=== PATIENT | male | born 1975 | race American Indian/Alaskan Native ===

== ENCOUNTER 2017-10-20 13:30 | Inpatient (IN) ==
[2017-10-20] MEDS ORDERED: IOPAMIDOL 100 ML BOTTLE IV ONE (13:31)
[2017-10-20] MEDS ORDERED: KETOROLAC 60 MG/2 ML VIAL IM ONE (13:40)
--- NOTE | 2017-10-20 15:40 | Emergency Department Note ---
Abdominal Pain HPI <Vargas Vega Theo - Last Filed: 10/20/17 17:10> - General Source: patient Mode of arrival: ambulatory Limitations: no limitations - History of Present Illness MD Complaint: abdominal pain Onset (ago): hour(s) Consistency: constant Location: RLQ, suprapubic Severity: moderate Severity scale (1-10): 8 Quality: cramping, stabbing, aching, sharp (initially when it happened) Radiation: other (right groin) Improves with: rest Worsens with: movement, other (palpation) Context: other (lifted a couch) Associated symptoms: Reports: denies other symptoms <Jefferson Martinez - Last Filed: 10/20/17 17:55> - General Chief Complaint: Abdominal Pain Stated Complaint: Abd pain Time Seen by Provider: 10/20/17 13:36 - History of Present Illness HPI Narrative: Patient presents today with right lower abdominal pain diffuse, does radiate into the suprapubic region and right groin, reports that he was lifting a couch this morning reached down and grabbed the couch lifted upward and felt a pop and immediate pain, continue to move the couch when he was done realized the pain was not subsiding, within a couple hours pain worsened, then presented at the ER, denies pain on the left, denies previous pain in this area, denies nausea vomiting or other symptoms at this time. (Jefferson Martinez) - Related Data Home Medications Medication Instructions Recorded Confirmed No Known Home Meds [No Known Home 10/20/17 10/20/17 Meds] Allergies Allergy/AdvReac Type Severity Reaction Status Date / Time No Known Drug Allergies Allergy Verified 10/20/17 13:32 Review of Systems All systems ED: reviewed and negative except as stated. <Jefferson Martinez - Last Filed: 10/20/17 17:55> Abdominal Pain PMH - Past Medical History Medical history: Reports: no medical history - Social History Smoking status: Never smoker <Jefferson Martinez - Last Filed: 10/20/17 17:55> Physical Exam Limitations: no limitations General appearance: anxious (due to pain/ discomfort) Respiratory: Present: normal lung sounds bilaterally Cardiovascular: Present: regular rate Abdominal: Present: soft, tenderness (right umbilicus), guarding, normal bowel sounds, hernia (umbilical 2x2, positioned mid umblicus to right LLQ). Absent: rebound, rigidity, organomegaly Back: Present: normal inspection, full ROM Neurological: Present: alert, oriented X3 Psychiatric: Present: normal affect, normal mood Skin: Present: warm, dry. Absent: rash <Jefferson Martinez - Last Filed: 10/20/17 17:55> Vital Signs Temperature 98.1 F 10/20/17 13:31 Pulse Rate 60 10/20/17 13:31 Respiratory Rate 16 10/20/17 13:31 Blood Pressure 145/95 10/20/17 13:31 Pulse Oximetry (%) 96 10/20/17 13:31 Temperature 98.1 F 10/20/17 13:31 Pulse Rate 70 10/20/17 17:20 Respiratory Rate 22 10/20/17 17:20 Blood Pressure 141/85 10/20/17 17:20 Pulse Oximetry (%) 95 10/20/17 17:20 Abdominal Pain - Lab Data Result diagrams: 10/20/17 14:06 <Vargas Vega - Last Filed: 10/20/17 17:10> - Lab Data Lab results reviewed: Yes I reviewed the patient's lab results. Result diagrams: 10/20/17 14:06 - Radiology Data Radiology results reviewed: Yes I reviewed the patient's radiology results. - EKG Data EKG attestation: Yes I reviewed and interpreted this EKG. EKG shows normal: ST-T waves <Jefferson Martinez - Last Filed: 10/20/17 17:55> - Lab Data Lab Results 10/20/17 10/20/17 10/20/17 Range/Units 14:06 14:06 14:06 WBC 8.0 (4.5-11.0) K/mcL RBC 5.03 (4.50-5.90) M/mcL Hgb 15.2 (13.5-16.5) g/dL Hct 46.0 (41.0-55.0) % POC Hct 48.0 (41.0-55.0) % MCV 91.5 (80.0-100.0) fL MCH 30.2 (26.0-34.0) pg MCHC 33.0 (31.0-36.0) g/dL RDW 13.2 (11.5-14.5) % Plt Count 287 (140-440) K/mcL MPV 7.9 (7.4-10.4) fL Total Counted 100 Seg Neutrophils % 74 (38-78) % Band Neutrophils % 1 (0-10) % Lymphocytes % 11 L (15-49) % Monocytes % (Manual) 8 (1-12) % Eosinophils % (Manual) 3 (0-7) % Basophils % (Manual) 3 H (0-2) % Platelet Estimate Normal (NORMAL) RBC Morphology Abnorm A (NORMAL) Polychromasia Rare A (NONE SEEN) POC PT (11.9-14.5) sec POC INR (0.9-1.2) POC Sodium 136 (133-145) mmol/L POC Potassium 3.3 (3.3-5.1) mmol/L POC Chloride 95 L (96-108) mmol/L POC Total CO2 26 (22-30) mmol/L POC BUN < 3 L (6-20) mg/dl POC Creatinine 0.6 L (0.7-1.2) mg/dl POC Glucose 114 H (70-105) mg/dL POC WB Ioniz Calcium 1.00 L (1.16-1.32) mmol/L Total Creatine Kinase 58 (24-195) IU/L CK-MB (CK-2) 4.5 (0-4.9) ng/ml Myoglobin < 25 L (28-72) ng/ml Troponin T (0-0.03) ng/ml Urine Color Urine Appearance Urine pH (5.0-9.0) Ur Specific [place] (1.000-1.035) Urine Protein (NEG) mg/dL Urine Glucose (UA) (NEG) mg/dL Urine Ketones (NEG) mg/dL Urine Occult Blood (<0.03) mg/dL Urine Nitrate (NEG) Urine Bilirubin (NEG) mg/dL Urine Urobilinogen (NEG) mg/dL Ur Leukocyte Esterase (NEG) /uL Ur Culture Indicated? 10/20/17 10/20/17 10/20/17 Range/Units 14:06 16:45 17:10 WBC (4.5-11.0) K/mcL RBC (4.50-5.90) M/mcL Hgb (13.5-16.5) g/dL Hct (41.0-55.0) % POC Hct (41.0-55.0) % MCV (80.0-100.0) fL MCH (26.0-34.0) pg MCHC (31.0-36.0) g/dL RDW (11.5-14.5) % Plt Count (140-440) K/mcL MPV (7.4-10.4) fL Total Counted Seg Neutrophils % (38-78) % Band Neutrophils % (0-10) % Lymphocytes % (15-49) % Monocytes % (Manual) (1-12) % Eosinophils % (Manual) (0-7) % Basophils % (Manual) (0-2) % Platelet Estimate (NORMAL) RBC Morphology (NORMAL) Polychromasia (NONE SEEN) POC PT 12.4 (11.9-14.5) sec POC INR 1.0 (0.9-1.2) POC Sodium (133-145) mmol/L POC Potassium (3.3-5.1) mmol/L POC Chloride (96-108) mmol/L POC Total CO2 (22-30) mmol/L POC BUN (6-20) mg/dl POC Creatinine (0.7-1.2) mg/dl POC Glucose (70-105) mg/dL POC WB Ioniz Calcium (1.16-1.32) mmol/L Total Creatine Kinase (24-195) IU/L CK-MB (CK-2) (0-4.9) ng/ml Myoglobin (28-72) ng/ml Troponin T < 0.01 (0-0.03) ng/ml Urine Color Yellow Urine Appearance Clear Urine pH 6.0 (5.0-9.0) Ur Specific [place] 1.047 H (1.000-1.035) Urine Protein Neg (NEG) mg/dL Urine Glucose (UA) Negative (NEG) mg/dL Urine Ketones Neg (NEG) mg/dL Urine Occult Blood Neg (<0.03) mg/dL Urine Nitrate Neg (NEG) Urine Bilirubin Neg (NEG) mg/dL Urine Urobilinogen Neg (NEG) mg/dL Ur Leukocyte Esterase Neg (NEG) /uL Ur Culture Indicated? No Disposition <Vargas Vega - Last Filed: 10/20/17 17:10> Pt seen by CHILDR[employer]'S [employer] SUPERVISOR/PA only: No (w/ Dr. Vega) <Jefferson Martinez Filed: 10/20/17 17:55> Clinical Impression: Periumbilical abdominal pain, Periumbilical hernia Summary: Discussed the results with the patient and Dr. Vega, Per the CT patient has a 6 cm periumbilical hernia with incarcerated segment of small bowel, Dr. Molina was called, patient was discussed, he asked me to start admittance process, order a chest x-ray and EKG. Dr. Vega looked over the EKG and ordered additional lab work Patient turned over to Dr. Vega, Dr. Vega completed the admission process ( Jefferson Martinez) Disposition: Home, Self-Care Condition: Fair
--- NOTE | 2017-10-20 15:50 | Cat Scan Report ---
CLINICAL INFORMATION: Severe periumbilical pain following lifting injury COMPARISON: Chest CT from 07/25/2017.. TECHNIQUE: Following enteric contrast, 80 cc of Isovue-300 were injected intravenously, and 60 seconds later, 0.625 mm helical slices were obtained from the mid heart through the subtrochanteric regions. Following reconstruction, 2.5 mm sagittal, coronal and axial reformatted images were processed and reviewed at bone, lung and soft tissue windows. Five minutes later, 0.625 mm helical slices were obtained from the mid heart through the kidneys and viewed at soft tissue windows.The exam was performed using radiation dose optimization techniques including, but not limited to, automated exposure control, adjustment of the mA and/or kV according to patient size and use of iterative reconstruction technique. FINDINGS: Moderate elevation of the right diaphragm is again noted. There is moderate compressive atelectasis in the overlying right middle and lower lobes which is unchanged. Right lung bases are normal no effusion. Visualized heart is normal Images should the abdomen show mild fatty change within the liver but no focal lesion. There is a 17 mm nodular density adjacent the gallbladder fundus which is unchanged from the chest CT three months ago. It is likely chronic secretions within a phrygian cap in the gallbladder. Gallbladder is otherwise normal. Common bile is normal caliber. Both kidneys, adrenal glands, spleen, pancreas and aorta including aortic branches are normal in size configuration and attenuation without focal lesion. Images of pelvis show prostate seminal vesicles and urinary bladder to be normal. A moderate sized (6 cm) periumbilical hernia containing a short segment of incarcerated. Small bowel is noted. A small amount of edema in the hernia sac. The small bowel, proximal to the hernia, is moderately dilated and the distal small bowel is decompressed. Findings suggestive of partial small bowel obstruction. There is no free air, free fluid and no adenopathy. Bone windows show no osseous abnormality IMPRESSION: 1. Moderate sized (6 cm) periumbilical hernia containing incarcerated segment of small bowel. There is resultant partial small bowel obstruction. 2. 16 mm well-circumscribed ovoid density adjacent to the gallbladder fundus is unchanged from a chest CT three months prior. This is likely proteinaceous secretions within a phrygian cap. 3. Moderate chronic elevation of the right diaphragm with compressive atelectasis of the overlying right middle and lower is stable. Diaphragm paresis or paralysis is suspected Interpreted and Authenticated by: Gera Duncan 10/20/17
[2017-10-20 16:15] LABS: Mean Cell Volume 91.5 fL (80.0-100.0); Mean Corpuscular Hemoglobin 30.2 pg (26.0-34.0); Platelet Count 287 K/mcL (140-440); RBC 5.03 M/mcL (4.50-5.90); Red Cell Distribution Width 13.2 % (11.5-14.5)
[2017-10-20 16:54] LABS: Band Neutrophils % 1 % (0-10); Basophils % (Manual) 3 % (0-2); Eosinophils % (Manual) 3 % (0-7); Lymphocytes % 11 % (15-49); Monocytes % (Manual) 8 % (1-12); Platelet Estimate NORMAL (NORMAL); RBC Morphology ABNORM (NORMAL); Segmented Neutrophils % 74 % (38-78)
[2017-10-20 16:55] LABS: Creatine Kinase MB 4.5 ng/ml (0-4.9); Myoglobin < 25 ng/ml (28-72)
[2017-10-20 16:56] LABS: Creatine Kinase 58 IU/L (24-195)
--- NOTE | 2017-10-20 17:05 | XRay Report ---
CLINICAL INFORMATION: Shortness of breath COMPARISON: 07/25/2017 chest x-ray FINDINGS: Heart size, mediastinum and pulmonary vessels are normal. Moderate elevation right diaphragm seen - as before. Subsegmental atelectasis in the right middle and lower lobes. No effusions. IMPRESSION: Moderate chronic elevation right diaphragm with mild compressive atelectasis in the overlying right middle and lower lobes. No change radiographically Interpreted and Authenticated by: Gera Duncan 10/20/17
--- NOTE | 2017-10-20 17:13 | Emergency Department Note ---
ED Note Addendum Note Addendum: pt examined and agree pt has an incarcerated umbilical hernia. Pre op EKG shows t wave inversion anterior lead and troponin were neg. Advised Dr oMlina and he requested a hospitalist consult to clear patient for surgery
[2017-10-20] MEDS ORDERED: 0.9 % SODIUM CHLORIDE 1,000 ML IV SCH (17:15)
[2017-10-20 17:44] LABS: Appearance,Urine CLEAR; Bilirubin,Urine NEG (NEG); Color,Urine YELLOW; Glucose,Urine (UA) NEGATIVE (NEG); Leukocyte Esterase,Urine NEG /uL (NEG); Nitrate,Urine NEG (NEG); Protein,Urine NEG (NEG); Specific Gravity,Urine 1.047 (1.000-1.035); Urine Blood NEG mg/dL (<0.03); Urobilinogen,Urine NEG (NEG)
[2017-10-20 18:34] LABS: Blood Urea Nitrogen 4 mg/dl (6-20); Magnesium 1.7 mg/dL (1.6-2.5)
--- NOTE | 2017-10-20 19:08 | Internal Med History&Physical ---
Medical - H&P: HPI Patient information: Note initiated : 10/20/17 at 7:03 pm Service Date, if different from initiated Date: [] Patient: Edil Nina a 42 y/o M admitted on 10/20/17 for Abd Pain. Chief Complaint: [] History of present illness: Mr. Nina is a 42 year old Male with no PMH presents to the ER today with sudden onset abdominal pain. The patient was moving a couch, when he heard a pop and noticed some swelling and pain in the betsy umbilical region. The patient has had moderate to severe abdominal pain since then, this is constant, non radiating, worse with palpatino and movement, better with rest and pain meds, Some nausea but no other complaints. The patient in the ER was seen and had a CT Abdomen done which showed a incarcerated small bowel with some obstruction. Dr Molina is planning to take the patient for surgery. EKG done showed new onset T wave inversions particularly in the Ant leads v1-v4 , which is new compared to patients previous EKG done in 07/14. Medicine was therefore consulted for pre op evaluation and management of new T wave changes. The patient is a healthy 42 yr male, has no past medical history, denies any h/ o DM, HTN, HLD, CAD, CHF, CKD or TIA. 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 He had a CT Angio done for shortness of breath in june which showed neg pe, elevated right jose a diaphragm and clear coronaries in proximal and mid coronaries. The patient has neg troponin today in the ER, neg myoglobin and neg CKMB. He has no cardiac complaints or concerns. he has no family history of cardiac disase, he had h/o smoking but quit 10 yrs ago, 3-4 cigs for 3-5 yrs., he does chew tobacco. All systems: reviewed and no additional remarkable complaints except as stated ( neg excp[et as per HPI) Medical - H&P: PMH Medical history: obesity Surgical history: none Family history: reviewed and not pertinent Pertinent family history: no cad, chf or tia, cva in family Social history: ex smoker chews tobacco drinks etoh 2 drinsk a day no drugs works as construction accountant Medical - H&P: Meds Home Medications Medication Instructions Recorded Confirmed Type No Known Home Meds [No Known Home 10/20/17 10/20/17 History Meds] Allergies Allergy/AdvReac Type Severity Reaction Status Date / Time No Known Drug Allergies Allergy Verified 10/20/17 13:32 Medical - H&P: Exam - Constitutional Vitals: Temp Pulse Resp BP Pulse Ox 98.4 F 71 18 141/93 95 10/20/17 17:40 10/20/17 17:40 10/20/17 17:40 10/20/17 17:40 10/20/17 17:40 Exam: GENERAL: The patient is a well-developed, well-nourished in no apparent distress. Is alert and oriented x3. VITAL SIGNS: Reviewed and as noted elsewhere. HEENT: Head is normocephalic and atraumatic. Extraocular muscles are intact. Pupils are equal, round, and reactive to light. Nares appeared normal. Mouth appears any without lesions. Mucous membranes are moist. NECK: Normal to inspection, Supple, No lymphadenopathy or thyromegaly. LUNGS: Air entry equal on both sides, no wheezing, crackles or rhonchi noted. No accessory muscles of respiration HEART: Regular rate and rhythm normal, S1 and S2 heard, no Gallop, S3 or Rub Noted, No Gross murmur heard. ABDOMEN: Soft, tender in periumibical reigion, hypoactive bowel sounds, no organomegaly EXTREMITIES: No cyanosis, clubbing, rash, lesions or edema. NEUROLOGIC: Cranial nerves II through XII are grossly intact. Motor and Sensory System Grossly Intact PSYCHIATRIC: Normal affect, Normal Mood. Appropriate Behavior. SKIN: No ulceration or wounds noted, No jaundice, No rash noted. Medical - H&P: Reslt - Labs CBC & Chem 7: 10/20/17 14:06 10/20/17 14:06 Labs: Short CBC 10/20/17 Range/Units 14:06 WBC 8.0 (4.5-11.0) K/mcL Hgb 15.2 (13.5-16.5) g/dL Hct 46.0 (41.0-55.0) % Plt Count 287 (140-440) K/mcL BMP 10/20/17 14:06 Sodium 137 Potassium 3.6 Chloride 95 L Carbon Dioxide 21 L BUN 4 L Creatinine 0.6 L Glucose 111 H Calcium 8.3 L Cardiac Enzymes 10/20/17 10/20/17 Range/Units 14:06 14:06 Total Creatine Kinase 58 (24-195) IU/L CK-MB (CK-2) 4.5 (0-4.9) ng/ml Troponin T < 0.01 (0-0.03) ng/ml Urine 10/20/17 Range/Units 17:10 Urine Color Yellow Urine Appearance Clear Urine pH 6.0 (5.0-9.0) Ur Specific [place] 1.047 H (1.000-1.035) Urine Protein Neg (NEG) mg/dL Urine Glucose (UA) Negative (NEG) mg/dL Medical - H&P: A/P - Narrative A/P Narrative: A/P Pre op assessment: Patient has low risk factors for betsy operative mortality, RCRI is 0, and he has limitless ET, Although the T wave inversions are present which are new, these can also be seen in patients with electrolyte abnormalities like hypokalemia as well as acute abdominal process. I dont feel that the t wave changes are cardiac in nature. I reviewed the Case with Dr Laird, education associate dough molder hand who also agreed with same. from a medicine stand point patient is at low cardiac risk for a intermediate risk procedure, no further interventions would be warranted from cardiac stand point. Given his mildly elevated glucose / overweight status, he may benefit from outpatient evaluation for long distance operator risk reduction. Smoking cessation will help. hypokalemia: replace K to keep Mg > 2, and K . 4 Acute incarcerated hernia,: Management as per surgery, Dr Molina plans to take him to the OR tomorrow Medical - H&P: Qual - VTE Deep Vein Thrombosis/Pulmonary Embolism Present on Admission: No
[2017-10-20] MEDS ORDERED: ONDANSETRON 4 MG/2 ML VIAL IV PRN (19:10)
[2017-10-20] MEDS ORDERED: PIPERACILLIN SODIUM/TAZOBACTAM 3.375 GM in DEXTROSE 5% IN WATER 50 ML IV SCH (19:15)
--- NOTE | 2017-10-20 19:19 | General Surgery Consult Note ---
History of Present Illness Patient information: Note initiated : 10/20/17 at 7:15 pm Service Date, if different from initiated Date: [] Patient: Edil Nina 42 y/o M admitted on 10/20/17 for Abd Pain. Chief Complaint: [] Reason for consult: abdominal pain (Incarcerated umbilical hernia) History of present illness: 42-year-old male who is admitted for incarcerated umbilical hernia with partial small bowel obstruction. The patient states that he noted tenderness around his umbilicus after he did some heavy lifting this morning. The pain became increasingly severe and he was seen in the emergency room where exam revealed a very tender swollen umbilicus. CT revealed an incarcerated hernia of the umbilicus with a single loop of small bowel and a small amount of fluid in the hernia sac. The patient has not had any nausea vomiting. CT shows some dilation of the bowel proximal to the incarcerated hernia with decompressed bowel distally. The patient's admission EKG shows ST and T-wave changes which different from that of June 2017. He denies having any chest pain. There is no history of heart disease. 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 He had CPK and troponins done which were negative. He has been seen by the hospitalist who agrees that there is no history of heart disease. Review of Systems - Constitutional no fever(s), no headache(s), no night sweats, no weakness - EENT Nose, mouth and throat: no abnormal hearing, no headache(s), no neck mass, no neck pain, no throat swelling - Cardiovascular no chest pain at rest, no chest pain with activity, no dyspnea, no dyspnea on exertion, no irregular heart rhythm, no lightheadedness, no palpatations, no rapid heart rate, no syncope - Respiratory no cough, no wheezing, no chest congestion, no pain with cough - Gastrointestinal abdominal pain, bloating, no heartburn, no nausea, no vomiting - Genitourinary no difficulty urinating, no dysuria, no urinary frequency, no urinary incontinence, no urinary urgency - Musculoskeletal no abnormal gait, no back pain, no joint swelling, no myalgias, no stiffness, no tingling - Integumentary no new lesions, no pruritus, no rash - Neurological no abnormal gait, no abnormal hearing, no confusion, no dizziness, no memory loss, no syncope, no tremor(s), no vertigo - Psychiatric no anxiety, no depression, no memory loss - Endocrine no fatigue, no palpitations, no polydipsia, no polyphagia, no polyuria - Hematologic/Lymphatic no easy bleeding, no easy bruising, no lymphadenopathy - Allergic/Immunologic no tongue swelling, no throat swelling, no uticaria, no wheezing, no lip swelling Past History Past medical history: No chronic medical illness; no history to suggest heart, lung, liver ,kidney or neurologic disorder Past surgical history: No history of operative procedure Past family history: Mother age 62 without medical illness Father a 67 with diabetes mellitus No siblings Past social history: Single Employed Former smoker Alcohol--2 beers per day Denies drug use Medications and Allergies Home Medications Medication Instructions Recorded Confirmed Type No Known Home Meds [No Known Home 10/20/17 10/20/17 History Meds] Allergies Allergy/AdvReac Type Severity Reaction Status Date / Time No Known Drug Allergies Allergy Verified 10/20/17 13:32 Exam Temp Pulse Resp BP Pulse Ox 98.4 F 71 18 141/93 95 10/20/17 17:40 10/20/17 17:40 10/20/17 17:40 10/20/17 17:40 10/20/17 17:40 - General physical appearance well developed, well nourished, no distress, moderate distress, obese - Eyes PERRL, normal ocular movement. negative: loss of movement - ENT normal pinna, normal nares, normal mucosa, no hearing loss, no congestion - Head Head exam IM: Present: atraumatic, normal inspection, normocephalic - Neck no masses, no bruits, trachea midline, no lymphadectomy, no venous distension - Cardiovascular Cardiovascular exam IM: Present: normal rate and rhythm, RRR, +S1, +S2. Absent : gallop, JVD, systolic murmur - Respiratory normal expansion, normal respiratory effort, clear to percussion, clear to auscultation - Abdomen Abdomen: Present: soft, tender, bowel sounds, distended (Mild distention with normal active bowel sounds; tenderness around umbilicus but otherwise unremarkable) Hernia: Present: none, umbilical (Umbilical hernia with incarceration) - Genitourinary Present: normal penis with no external lesions - Integumentary Present: no rash, no growths, no abnormal pigmentation - Neurologic Present: normal coordination, normal sensation - Musculoskeletal Present: normal gait, normal posture - Psychiatric Present: oriented to time, oriented to person, oriented to place, speech is normal, memory intact Results - Labs 10/20/17 14:06 10/20/17 14:06 Abnormal lab results 10/20/17 10/20/17 10/20/17 Range/Units 14:06 14:06 14:06 Lymphocytes % 11 L (15-49) % Basophils % (Manual) 3 H (0-2) % RBC Morphology Abnorm A (NORMAL) Polychromasia Rare A (NONE SEEN) POC Chloride 95 L (96-108) mmol/L Chloride (96-108) mmol/L Carbon Dioxide (22-30) mmol/L Anion Gap (8-16) POC BUN < 3 L (6-20) mg/dl BUN (6-20) mg/dl Creatinine (0.7-1.2) mg/dl POC Creatinine 0.6 L (0.7-1.2) mg/dl Glucose (70-105) mg/dL POC Glucose 114 H (70-105) mg/dL Calcium (8.6-10.4) mg/dl POC WB Ioniz Calcium 1.00 L (1.16-1.32) mmol/L Myoglobin < 25 L (28-72) ng/ml Ur Specific [place] (1.000-1.035) 10/20/17 10/20/17 Range/Units 14:06 17:10 Lymphocytes % (15-49) % Basophils % (Manual) (0-2) % RBC Morphology (NORMAL) Polychromasia (NONE SEEN) POC Chloride (96-108) mmol/L Chloride 95 L (96-108) mmol/L Carbon Dioxide 21 L (22-30) mmol/L Anion Gap 21.0 H (8-16) POC BUN (6-20) mg/dl BUN 4 L (6-20) mg/dl Creatinine 0.6 L (0.7-1.2) mg/dl POC Creatinine (0.7-1.2) mg/dl Glucose 111 H (70-105) mg/dL POC Glucose (70-105) mg/dL Calcium 8.3 L (8.6-10.4) mg/dl POC WB Ioniz Calcium (1.16-1.32) mmol/L Myoglobin (28-72) ng/ml Ur Specific [place] 1.047 H (1.000-1.035) Diabetes panel 10/20/17 Range/Units 14:06 Sodium 137 (133-145) mmol/L Potassium 3.6 (3.3-5.1) mmol/L Chloride 95 L (96-108) mmol/L Carbon Dioxide 21 L (22-30) mmol/L BUN 4 L (6-20) mg/dl Creatinine 0.6 L (0.7-1.2) mg/dl Glucose 111 H (70-105) mg/dL Calcium 8.3 L (8.6-10.4) mg/dl Calcium panel 10/20/17 Range/Units 14:06 Calcium 8.3 L (8.6-10.4) mg/dl Pituitary panel 10/20/17 Range/Units 14:06 Sodium 137 (133-145) mmol/L Potassium 3.6 (3.3-5.1) mmol/L Chloride 95 L (96-108) mmol/L Carbon Dioxide 21 L (22-30) mmol/L BUN 4 L (6-20) mg/dl Creatinine 0.6 L (0.7-1.2) mg/dl Glucose 111 H (70-105) mg/dL Calcium 8.3 L (8.6-10.4) mg/dl Adrenal panel 10/20/17 Range/Units 14:06 Sodium 137 (133-145) mmol/L Potassium 3.6 (3.3-5.1) mmol/L Chloride 95 L (96-108) mmol/L Carbon Dioxide 21 L (22-30) mmol/L BUN 4 L (6-20) mg/dl Creatinine 0.6 L (0.7-1.2) mg/dl Glucose 111 H (70-105) mg/dL Calcium 8.3 L (8.6-10.4) mg/dl All other labs normal. Assessment and Plan (1) Incarcerated umbilical hernia We will control pain with analgesics Schedule for operative repair in the morning Status: Acute (2) Partial small bowel obstruction As above Status: Acute (3) Abnormal electrocardiogram finding No historical or clinical data to suggest ischemic heart disease in a patient who does extremely heavy physical labor daily and is totally asymptomatic from a cardiac standpoint. Status: Acute
[2017-10-20] MEDS ORDERED: POTASSIUM CHLORIDE 40 MEQ in DEXTROSE 5% IN WATER 500 ML IV ONE (19:39)
[2017-10-20] MEDS ORDERED: MAGNESIUM SULFATE 2 GM/50 ML BAG IV ONE (19:39)
[2017-10-20] MEDS: 0.9 % SODIUM CHLORIDE 1,000 ML IV SCH (19:54)
[2017-10-20] MEDS ORDERED: HYDROmorphone 2 MG/ML SYRINGE ONE (19:57)
[2017-10-20] MEDS ORDERED: POTASSIUM CHLORIDE 20 MEQ/10 ML VIAL IV ONE (21:31)
[2017-10-21] MEDS: HYDROmorphone 2 MG/ML SYRINGE IV PRN ×4 (00:39→18:39)
[2017-10-21] MEDS: PIPERACILLIN SODIUM/TAZOBACTAM 3.375 GM in DEXTROSE 5% IN WATER 100 ML IV SCH ×5 (01:13→23:55)
[2017-10-21] MEDS: 0.9 % SODIUM CHLORIDE 1,000 ML IV SCH ×4 (05:41→23:19)
[2017-10-21 05:42] LABS: Basophils # (Auto) 0.1 K/mcL (0.0-0.3); Basophils % (Auto) 0.6 % (0.0-2.0); Eosinophils # (Auto) 0.3 K/mcL (0.0-0.7); Lymphocytes % (Auto) 19.1 % (15.5-49.0); Mean Cell Volume 92.4 fL (80.0-100.0); Mean Corpuscular HGB Conc 32.5 g/dL (31.0-36.0); Monocytes # (Auto) 0.7 K/mcL (0.1-0.9); Monocytes % (Auto) 7.3 % (1.0-12.0); Platelet Count 273 K/mcL (140-440); RBC 5.19 M/mcL (4.50-5.90); Red Cell Distribution Width 13.2 % (11.5-14.5)
[2017-10-21 06:13] LABS: ALT/SGPT 19 U/l (0-40); Albumin 3.5 gm/dL (3.2-5.2); Albumin/Globulin Ratio 1.3 (1.0-2.3); Alkaline Phosphatase 90 U/L (39-117); Bilirubin,Direct 0.2 mg/dL (0.0-0.3); Blood Urea Nitrogen 5 mg/dl (6-20); Gamma Glutamyl Transpeptidase 183 U/L (8-61); Magnesium 2.3 mg/dL (1.6-2.5); Uric Acid 6.7 mg/dL (2.5-8.0)
[2017-10-21] MEDS ORDERED: PANTOPRAZOLE 40 MG VIAL IV SCH (07:30)
[2017-10-21] MEDS ORDERED: DEXAMETHASONE 10 MG/ML VIAL IV ONE (10:25)
[2017-10-21] MEDS ORDERED: LIDOCAINE HCL/PF 100 MG/5 ML SYRINGE IV ONE (10:25)
[2017-10-21] MEDS ORDERED: GLYCOPYRROLATE 0.2 MG/ML VIAL IV ONE (10:25)
[2017-10-21] MEDS ORDERED: NALBUPHINE 10 MG/ML AMPUL IV ONE (10:25)
[2017-10-21] MEDS ORDERED: PROPOFOL 200 MG/20 ML VIAL IV ONE (10:25)
[2017-10-21] MEDS ORDERED: MIDAZOLAM 5 MG/5 ML VIAL IV ONE (10:25)
[2017-10-21] MEDS ORDERED: fentaNYL 250 MCG/5 ML VIAL IV ONE (10:25)
[2017-10-21] MEDS ORDERED: ROCURONIUM 10 MG/ML ML IV ONE (10:25)
[2017-10-21] MEDS ORDERED: NEOSTIGMINE 1 MG/ML VIAL IV ONE (10:25)
[2017-10-21] MEDS ORDERED: SUCCINYLCHOLINE 20 MG/ML ML IV ONE (10:25)
[2017-10-21] MEDS ORDERED: BACITRACIN 50,000 UNIT VIAL IR ONE (10:59)
[2017-10-21] MEDS ORDERED: ONDANSETRON 4 MG/2 ML VIAL IV PRN ×2 (11:10→11:57)
[2017-10-21] MEDS ORDERED: fentaNYL 100 MCG/2 ML VIAL IV PRN (11:10)
[2017-10-21] MEDS ORDERED: diphenhydrAMINE 50 MG/ML VIAL IV PRN (11:10)
[2017-10-21] MEDS ORDERED: BENZOCAINE/MENTHOL 1 LOZENGE PO PRN ×2 (11:10→11:57)
[2017-10-21] MEDS ORDERED: ACETAMINOPHEN 1,000 MG/100 ML BOTTLE IV ONE (11:10)
[2017-10-21] MEDS ORDERED: FLUMAZENIL 0.1 MG/ML ML IV PRN (11:10)
[2017-10-21] MEDS ORDERED: IPRATROPIUM/ALBUTEROL 3 ML AMPUL.NEB NEB PRN (11:10)
[2017-10-21] MEDS ORDERED: NALOXONE HCL 0.4 MG/ML VIAL IV PRN (11:10)
[2017-10-21] MEDS ORDERED: MEPERIDINE 25 MG/ML SYRINGE IV PRN (11:10)
[2017-10-21] MEDS ORDERED: LACTATED RINGERS 250 ML IV PRN (11:10)
[2017-10-21] MEDS ORDERED: PROMETHAZINE 25 MG/ML VIAL IV PRN (11:10)
[2017-10-21] MEDS ORDERED: LACTATED RINGERS 1,000 ML IV SCH ×2 (11:15→11:57)
--- NOTE | 2017-10-21 11:21 | Brief Operative Note ---
Date of procedure: 10/21/17 Pre-op diagnosis: incarcerated umbilical hernia Post-op diagnosis: other (incarcerated umbilical hernia with small bowel obstruction) Procedure: umbilical hernia repair with mesh graft Grafts/Implants: Yes (surgimesh -- 7cmm round skirted) Anesthesia: GETA Findings: small bowel loop tightly incarcerated in fascial defect Complications: none Surgeon: Alex Molina Estimated blood loss (cc): 5 Specimens Removed/Pathology: none sent Condition: stable Disposition: PACU
[2017-10-21] MEDS ORDERED: METOPROLOL TARTRATE 5 MG/5 ML VIAL IV ONE ×2 (12:14→12:23)
[2017-10-21] MEDS ORDERED: hydrALAZINE 20 MG/ML VIAL IV ONE (12:27)
[2017-10-21] MEDS: ACETAMINOPHEN 1,000 MG/100 ML BOTTLE IV SCH ×3 (14:34→23:17)
[2017-10-22 04:59] LABS: Basophils # (Auto) 0 K/mcL (0.0-0.3); Basophils % (Auto) 0.3 % (0.0-2.0); Eosinophils # (Auto) 0 K/mcL (0.0-0.7); Eosinophils % (Auto) 0 % (0.0-7.0); Granulocytes % (Auto) 82.7 % (38.0-78.0); Lymphocytes # (Auto) 1.2 K/mcL (1.5-4.8); Lymphocytes % (Auto) 11.8 % (15.5-49.0); Mean Cell Volume 93.2 fL (80.0-100.0); Mean Corpuscular HGB Conc 32.5 g/dL (31.0-36.0); Mean Corpuscular Hemoglobin 30.3 pg (26.0-34.0); Monocytes # (Auto) 0.5 K/mcL (0.1-0.9); Monocytes % (Auto) 5.2 % (1.0-12.0); Platelet Count 272 K/mcL (140-440); RBC 4.72 M/mcL (4.50-5.90); Red Cell Distribution Width 13.4 % (11.5-14.5)
[2017-10-22 05:29] LABS: ALT/SGPT 19 U/l (0-40); Albumin 3.5 gm/dL (3.2-5.2); Albumin/Globulin Ratio 1.3 (1.0-2.3); Alkaline Phosphatase 81 U/L (39-117); Bilirubin,Direct 0.2 mg/dL (0.0-0.3); Blood Urea Nitrogen 5 mg/dl (6-20); Gamma Glutamyl Transpeptidase 196 U/L (8-61); Magnesium 2.1 mg/dL (1.6-2.5); Uric Acid 4.9 mg/dL (2.5-8.0)
[2017-10-22] MEDS: ACETAMINOPHEN 1,000 MG/100 ML BOTTLE IV SCH ×4 (06:07→23:56)
[2017-10-22] MEDS: PIPERACILLIN SODIUM/TAZOBACTAM 3.375 GM in DEXTROSE 5% IN WATER 100 ML IV SCH ×3 (06:42→17:59)
[2017-10-22] MEDS: PANTOPRAZOLE 40 MG VIAL IV SCH (06:43)
[2017-10-22] MEDS: 0.9 % SODIUM CHLORIDE 1,000 ML IV SCH (09:25)
--- NOTE | 2017-10-22 13:53 | General Surgery Progress Note ---
Subjective Patient reports: feels better, pain is less, tolerating liquids well, no flatus , no bowel movement, afebrile Narrative: Note initiated : 10/22/17 at 1:51 pm Service Date, if different from initiated Date: [] Patient: Edil Nina 42 y/o M admitted on 10/20/17 for Abd Pain. Chief Complaint: [Patient is doing well. He has significant abdominal distention and he has not passed flatus. He does not complain of nausea and has tolerated full liquid diet. His operative site is unremarkable.] Objective Temp Pulse Resp BP Pulse Ox 97.5 F 48 L 18 118/69 96 10/22/17 12:00 10/22/17 04:00 10/22/17 12:00 10/22/17 12:00 10/22/17 12:00 - Additional Data Intake & Output - Last 24 hours: Intake & Output 10/20/17 10/21/17 10/22/17 10/23/17 05:59 05:59 05:59 05:59 Intake Total 280 / 280 5347 / 5347 440 / 440 Output Total 375 / 375 3125 / 3125 1350 / 1350 Balance -95 / -95 2222 / 2222 -910 / -910 Weight 254 lb 14.4 oz 255 lb 8 oz - General physical appearance well developed, well nourished, no distress, severe distress - Eyes PERRL, normal ocular movement - ENT normal pinna, normal nares, normal mucosa, no hearing loss, no congestion - Neck no venous distension - Respiratory normal expansion, normal respiratory effort, clear to percussion, clear to auscultation - Cardiovascular Cardiovascular exam: Present: normal rate and rhythm, gallop, RRR, +S1, +S2, systolic murmur. Absent: JVD - Abdomen tender, bowel sounds (present), surgical scars (none), masses (none) - Integumentary no rash, no growths, no abnormal pigmentation - Neurologic normal coordination, normal sensation - Musculoskeletal normal gait, normal posture - Psychiatric oriented to time, oriented to person, oriented to place, speech is normal, memory intact - Labs 10/22/17 04:22 10/22/17 04:22 Diabetes panel 10/22/17 Range/Units 04:22 Sodium 139 (133-145) mmol/L Potassium 4.7 (3.3-5.1) mmol/L Chloride 101 (96-108) mmol/L Carbon Dioxide 31 H (22-30) mmol/L BUN 5 L (6-20) mg/dl Creatinine 0.8 (0.7-1.2) mg/dl Glucose 108 H (70-105) mg/dL Calcium 8.2 L (8.6-10.4) mg/dl AST 19 (0-37) U/l ALT 19 (0-40) U/l Alkaline Phosphatase 81 (39-117) U/L Total Protein 6.2 (5.9-8.4) gm/dL Albumin 3.5 (3.2-5.2) gm/dL Triglycerides 141 (<150) mg/dl Calcium panel 10/22/17 Range/Units 04:22 Calcium 8.2 L (8.6-10.4) mg/dl Phosphorus 4.2 (2.7-4.5) mg/dL Albumin 3.5 (3.2-5.2) gm/dL Pituitary panel 10/22/17 Range/Units 04:22 Sodium 139 (133-145) mmol/L Potassium 4.7 (3.3-5.1) mmol/L Chloride 101 (96-108) mmol/L Carbon Dioxide 31 H (22-30) mmol/L BUN 5 L (6-20) mg/dl Creatinine 0.8 (0.7-1.2) mg/dl Glucose 108 H (70-105) mg/dL Calcium 8.2 L (8.6-10.4) mg/dl Adrenal panel 10/22/17 Range/Units 04:22 Sodium 139 (133-145) mmol/L Potassium 4.7 (3.3-5.1) mmol/L Chloride 101 (96-108) mmol/L Carbon Dioxide 31 H (22-30) mmol/L BUN 5 L (6-20) mg/dl Creatinine 0.8 (0.7-1.2) mg/dl Glucose 108 H (70-105) mg/dL Calcium 8.2 L (8.6-10.4) mg/dl Total Bilirubin 0.5 (0.0-1.0) mg/dL AST 19 (0-37) U/l ALT 19 (0-40) U/l Alkaline Phosphatase 81 (39-117) U/L Total Protein 6.2 (5.9-8.4) gm/dL Albumin 3.5 (3.2-5.2) gm/dL Assessment and Plan (1) Incarcerated umbilical hernia Status: Acute Assessment and plan: Status post umbilical hernia repair. He is stable and improved. He has increased sedation with the Dilaudid so it is discontinued. He will be placed on oral Percocet. Reglan is started to increase small bowel motility. Current Visit: Yes (2) Partial small bowel obstruction Status: Acute Current Visit: Yes (3) Abnormal electrocardiogram finding Status: Acute Current Visit: Yes - Time Spent With Patient Total time spent is greater than 50% in coordination of care (as documented) at patient's floor/unit and/or counseling patient:
[2017-10-22] MEDS: METOCLOPRAMIDE 10 MG/2 ML VIAL IV SCH (17:21)
[2017-10-22] MEDS: oxyCODONE HCL 5 MG TABLET PO PRN (17:33)
[2017-10-23] MEDS: oxyCODONE HCL 5 MG TABLET PO PRN ×4 (00:04→15:57)
[2017-10-23] MEDS: METOCLOPRAMIDE 10 MG/2 ML VIAL IV SCH ×3 (00:05→11:36)
[2017-10-23] MEDS: PIPERACILLIN SODIUM/TAZOBACTAM 3.375 GM in DEXTROSE 5% IN WATER 100 ML IV SCH ×3 (00:50→12:29)
[2017-10-23] MEDS: ACETAMINOPHEN 1,000 MG/100 ML BOTTLE IV SCH ×2 (06:02→11:38)
[2017-10-23 06:23] LABS: Basophils # (Auto) 0.1 K/mcL (0.0-0.3); Basophils % (Auto) 0.6 % (0.0-2.0); Eosinophils # (Auto) 0.2 K/mcL (0.0-0.7); Eosinophils % (Auto) 2.3 % (0.0-7.0); Granulocytes % (Auto) 61.5 % (38.0-78.0); Lymphocytes # (Auto) 2.6 K/mcL (1.5-4.8); Lymphocytes % (Auto) 27.1 % (15.5-49.0); Mean Cell Volume 94.3 fL (80.0-100.0); Mean Corpuscular HGB Conc 32.8 g/dL (31.0-36.0); Mean Corpuscular Hemoglobin 30.9 pg (26.0-34.0); Monocytes # (Auto) 0.8 K/mcL (0.1-0.9); Monocytes % (Auto) 8.5 % (1.0-12.0); Platelet Count 242 K/mcL (140-440); RBC 4.49 M/mcL (4.50-5.90); Red Cell Distribution Width 13.5 % (11.5-14.5)
[2017-10-23] MEDS: PANTOPRAZOLE 40 MG VIAL IV SCH (06:43)
[2017-10-23 06:52] LABS: ALT/SGPT 50 U/l (0-40); Albumin 3.2 gm/dL (3.2-5.2); Alkaline Phosphatase 85 U/L (39-117); Bilirubin,Direct < 0.2 mg/dL (0.0-0.3); Blood Urea Nitrogen 8 mg/dl (6-20); Gamma Glutamyl Transpeptidase 232 U/L (8-61); Magnesium 2.1 mg/dL (1.6-2.5); Uric Acid 5.1 mg/dL (2.5-8.0)
--- NOTE | 2017-10-23 13:45 | Discharge Summary ---
Providers - Providers Patient information: Note initiated : 10/23/17 at 1:41 pm Service Date, if different from initiated Date: [] Patient: Edil Nina 42 y/o M admitted on 10/20/17 for Abd Pain. Chief Complaint: [] Date of admission: 10/20/17 Discharge date: 10/23/17 Attending physician: Alex Molina Hospitalization Hospital course: 42-year-old male who presented to the emergency room with a 1 day history Of a painful swollen umbilicus. He had onset of pain while lifting some heavy furniture. The pain increased in intensity and his umbilical area became very sore. He had nausea but no vomiting. He presented to the emergency room with a swollen umbilicus with exquisite tenderness. CT scan confirmed the incarcerated umbilical hernia with a single loop of small bowel. He was admitted hydrated and scheduled for surgery. He had a single loop of viable bowel incarcerated in the hernia sac. It it was reduced uneventfully. Mesh graft repair of the hernia was carried out and the fascia was closed over the mesh. Patient has been monitored as an inpatient until he started passing flatus. He is now tolerating a soft diet and is having flatus but no bowel movement. He is stable for discharge home. It is noted that he has sensitivity to narcotic analgesics and he rapidly desats after narcotics. He has an element of sleep apnea which will need to be evaluated as an outpatient. Discharge diagnosis: Incarcerated umbilical hernia Secondary discharge diagnosis: Small bowel obstruction due to incarcerated umbilical hernia Suspected obstructive sleep apnea Reason for admission: Abdominal pain with bowel obstruction Procedures: Umbilical hernia repair with mesh graft Pertinent studies/significant findings: CT of abdomen and pelvis with IV contrast Complications: None Exam Temp Pulse Resp BP Pulse Ox 98.2 F 62 18 109/73 94 10/23/17 11:59 10/23/17 04:00 10/23/17 11:59 10/23/17 11:59 10/23/17 11:59 - General physical appearance well developed, well nourished, no distress - Eyes PERRL, normal ocular movement - ENT normal pinna, normal nares, normal mucosa, no hearing loss, no congestion - Head Head exam IM: Present: atraumatic, normocephalic - Neck no masses, no bruits, trachea midline, no lymphadectomy, no venous distension - Cardiovascular Cardiovascular exam IM: Present: normal rate and rhythm - Respiratory normal expansion, normal respiratory effort, clear to percussion, clear to auscultation - Abdomen Abdomen: Present: soft, tender (Mild tenderness around operative site; moderate distention with tympany; good active bowel sounds), bowel sounds, distended Hernia: Present: none - Genitourinary Present: normal penis with no external lesions - Integumentary Present: no rash, no growths, no abnormal pigmentation - Neurologic Present: normal coordination, normal sensation - Musculoskeletal Present: normal gait, normal posture - Psychiatric Present: oriented to time, oriented to person, oriented to place, speech is normal, memory intact Discharge Plan - Patient/Caregiver Discharge Instructions Activity: increase activity as tolerated Diet: Regular Diet Additional Instructions: Leave dressing on until you return to the office Take the antibiotic for 7 days Contact the office for an appointment in 2 weeks Prescriptions: Levofloxacin [Levaquin] 500 mg PO DAILY #7 tab oxyCODONE HCL [Roxicodone] 5 mg PO Q4HP PRN #30 tablet PRN Reason: Pain Level 3-6 - Follow up Plan Disposition: Home, Self-Care Prognosis: Good Rehab Potential: Good I certify that the patient requires SNF services.: No Overall status at discharge: patient is not back to baseline Pending Studies Resuscitation Status Full Code Diet Full Liquid Diet Start TueOct 21 1127 Piperacillin Sod/Tazobactam (Sod 3.375 gm/ Dextrose) 100 mls @ 100 mls/hr IV Q6H BLAKE Last Admin: 10/23/17 12:29 Dose: 100 mls/hr Infusion: 10/23/17 07:48 Dose: 100 mls/hr Admin: 10/23/17 06:48 Dose: 100 mls/hr Infusion: 10/23/17 02:10 Dose: 0 mls/hr Admin: 10/23/17 00:50 Dose: 100 mls/hr Infusion: 10/22/17 18:59 Dose: 0 mls/hr Admin: 10/22/17 17:59 Dose: 100 mls/hr Infusion: 10/22/17 14:00 Dose: 0 mls/hr Admin: 10/22/17 13:00 Dose: 100 mls/hr Infusion: 10/22/17 07:45 Dose: 0 mls/hr Admin: 10/22/17 06:42 Dose: 100 mls/hr Infusion: 10/22/17 00:55 Dose: 100 mls/hr Admin: 10/21/17 23:55 Dose: 100 mls/hr Infusion: 10/21/17 20:22 Dose: 0 mls/hr Admin: 10/21/17 19:22 Dose: 100 mls/hr Infusion: 10/21/17 14:47 Dose: 0 mls/hr Admin: 10/21/17 13:36 Dose: 100 mls/hr Acetaminophen (Ofirmev) 1,000 mg in 100 mls @ 200 mls/hr IV Q6 [facility] Last Admin: 10/23/17 11:38 Dose: 200 mls/hr Infusion: 10/23/17 06:37 Dose: 0 mls/hr Admin: 10/23/17 06:02 Dose: 200 mls/hr Infusion: 10/23/17 00:30 Dose: 0 mls/hr Admin: 10/22/17 23:56 Dose: 200 mls/hr Infusion: 10/22/17 17:55 Dose: 0 mls/hr Admin: 10/22/17 17:22 Dose: 200 mls/hr Infusion: 10/22/17 13:00 Dose: 0 mls/hr Admin: 10/22/17 11:57 Dose: 200 mls/hr Infusion: 10/22/17 06:37 Dose: 0 mls/hr Admin: 10/22/17 06:07 Dose: 200 mls/hr Infusion: 10/21/17 23:47 Dose: 0 mls/hr Admin: 10/21/17 23:17 Dose: 200 mls/hr Infusion: 10/21/17 19:09 Dose: 0 mls/hr Admin: 10/21/17 18:39 Dose: 200 mls/hr Infusion: 10/21/17 15:44 Dose: 200 mls/hr Admin: 10/21/17 14:34 Dose: 200 mls/hr Metoclopramide HCl (Reglan) 10 mg IV Q6 [facility] Last Admin: 10/23/17 11:36 Dose: 10 mg Admin: 10/23/17 05:55 Dose: 10 mg Admin: 10/23/17 00:05 Dose: 10 mg Admin: 10/22/17 17:21 Dose: 10 mg Oxycodone HCl (Roxicodone) 10 mg PO Q4HP PRN PRN Reason: PAIN LEVEL 3-6 Last Admin: 10/23/17 12:29 Dose: 5 mg Admin: 10/23/17 04:20 Dose: 5 mg Admin: 10/23/17 00:04 Dose: 10 mg Admin: 10/22/17 17:33 Dose: 10 mg Pantoprazole Sodium (Protonix) 40 mg IV QAMAC BLAKE Last Admin: 10/23/17 06:43 Dose: 40 mg Admin: 10/22/17 06:43 Dose: 40 mg Shift Summary 10/23/17 03:36 Shift Summary by Meera Candelaria PT doing good. Slept well through night. He did have to be placed on O2 through night for sats on RA of 84% after PO pain pills. Medicated with scheduled Ofirmev and Roxycodone x1 for pain. Ambulated in [place], up ad justa, sats fine while he is awake and moving, dipped down when he sat back on bed. Using IS, can only get it up to about 1000 tonight. Passing flatus, no BM as of yet. Voiding in bathroom. Drgs to mid lower abdomen CDI. 18G to RFA, SL and patent, 20G to LFA is SL and patent but arm appears swollen, will probably d/c by your shift. Poss d/c home today. Initialized on 10/23/17 03:36 - END OF NOTE
--- NOTE | 2017-10-27 15:09 | Operative Note ---
DATE OF OPERATION: 10/21/2017 PREOPERATIVE DIAGNOSIS: Incarcerated umbilical hernia. POSTOPERATIVE DIAGNOSIS: Incarcerated umbilical hernia with small-bowel obstruction. PROCEDURE: Umbilical hernia repair with mesh graft. SURGEON: Alex Molina MD FINDINGS: Small bowel loop tightly incarcerated and fascial defect with edema but with viable tissue. DESCRIPTION OF PROCEDURE: Under general anesthesia, the patient's abdomen was prepped and draped in a sterile field. Timeout procedure was carried out as per protocol. A curvilinear infraumbilical incision was made. The dissection was continued down to the hernia sac. The hernia sac was circumferentially dissected and was from the overlying tissue. Once this was done, a small sliver was made in the sac and the bowel appeared to be unremarkable. It was pushed back into the peritoneal cavity without difficulty. The small rent in the sac was closed with 3-0 Vicryl. Circumferential dissection was carried out in the extraperitoneal space until a 7 cm round skirted graft could be placed. Once this was placed, it was sutured circumferentially with interrupted 0 Prolene. The muscle and fascia were then closed over the graft using interrupted [id number] sutures of #1 Prolene. The umbilical skin was sutured down to the fascia and the subcutaneous tissue was closed with 2-0 Monocryl. The skin was closed with subcuticular 4-0 Vicryl. A cotton ball was placed in the depth of the umbilicus and this was clamped with Tegaderm. The patient tolerated the procedure well. He was awakened and transferred to the Postanesthetic Care Unit in stable satisfactory condition. LCS:patrick Job ID: [id number] Doc ID: [id number] Alex Molina M.D.
== END 2017-10-23 16:00 | disposition home or self-care (01) | DRG 355 ==
LOC: ED 13:30 → ICU 17:35 → MEDSUR 19:13
PROVIDERS: ADMIT Family Medicine Adult Medicine; ATTEND Family Medicine Adult Medicine